=== PATIENT | female | born 1980 | race Two or more races ===

== ENCOUNTER 2020-01-02 09:52 | Inpatient (IN) | payer OTHER ==
[~2020-01-02] VITALS: Ht 160 cm; Wt 60.3 kg
[2020-01-23] MEDS ORDERED: PRENATAL TABLE1 EAC1 PO (16:17)
== END 2020-01-26 13:10 | disposition home or self-care (01) | DRG 788 ==
LOC: SURG-SUITE 01-23 15:58 → LDR 01-23 15:58 → O/R 01-23 23:15 → SURG-SUITE 01-24 00:23 → LDR 01-25 10:15 → SURG-SUITE 01-26 13:10
PROVIDERS: ADMIT Obstetrics & Gynecology Maternal & Fetal Medicine; ATTEND Obstetrics & Gynecology Maternal & Fetal Medicine
PROC: 3E0P7VZ Introduction of Hormone into Female Reproductive, Via Natural or Artificial Opening (ICD-10-PCS; 2020-01-23)
PROC: 3E033VJ Introduction of Other Hormone into Peripheral Vein, Percutaneous Approach (ICD-10-PCS; 2020-01-23)
PROC: 4A1HXCZ Monitoring of Products of Conception, Cardiac Rate, External Approach (ICD-10-PCS; 2020-01-23)
PROC: 10D00Z1 Extraction of Products of Conception, Low, Open Approach (ICD-10-PCS; principal; 2020-01-24)
DX: O61.1 Failed instrumental induction of labor (principal); O76 Abnormality in fetal heart rate and rhythm complicating labor and delivery; Z3A.40 40 weeks gestation of pregnancy; Z37.0 Single live birth

== ENCOUNTER → 2020-01-09 | Outpatient (CLI) | payer OTHER | END | disposition home or self-care (01) | LOC: SONOGRAMA 10:45 | DX: N60.11 Diffuse cystic mastopathy of right breast (principal); N60.12 Diffuse cystic mastopathy of left breast; C50.412 Malignant neoplasm of upper-outer quadrant of left female breast ==

== ENCOUNTER 2020-01-22 08:33 | Outpatient (CLI) | payer OTHER ==
[2020-01-23] MEDS ORDERED: PRENATAL TABLE1 EAC1 PO (16:17)
== END 2020-01-22 09:16 | disposition home or self-care (01) ==
LOC: NST 08:33
DX: Z34.83 Encounter for supervision of other normal pregnancy, third trimester (principal)

== ENCOUNTER 2020-09-18 14:43 | Outpatient (CLI) | payer OTHER ==
[~2020-09-18 14:43] MED LIST: PRENATAL TABLE1 EAC1 PO
== END 2020-09-18 15:03 | disposition home or self-care (01) ==
LOC: SONOGRAMA 14:43 → MAMO-SONO 15:15
PROVIDERS: ATTEND Surgery
DX: N60.11 Diffuse cystic mastopathy of right breast (principal); N60.12 Diffuse cystic mastopathy of left breast